=== PATIENT | female | born 1935 | race Caucasian/White ===

== ENCOUNTER 2019-07-25 22:11 | Emergency (ER) | payer MEDICARE, OTHER ==
[~2019-07-25] VITALS: Ht 162.6 cm; Wt 92.0 kg
[2019-07-25] MEDS ORDERED: ipratropium/albuterol 3ml nebule NEB ONE (22:45)
[2019-07-25] MEDS ORDERED: methylPREDNISolone sod succ 125mg/2ml vial IV ONE (22:45)
[2019-07-25 22:59] LABS: ALANINE AMINOTRANSFERASE 62 U/L (12-78); ALBUMIN 3.6 G/DL (3.4-5.0); ALBUMIN/GLOBULIN RATIO 0.9 (1.1-1.5); ALKALINE PHOSPHATASE 54 IU/L (46-116); ANION GAP 9 (8-16); ASPARTATE AMINO TRANSFERASE 66 U/L (10-37); BILIRUBIN,TOTAL 0.4 MG/DL (0.1-1.0); BLOOD UREA NITROGEN 11 MG/DL (7-18); BUN/CREATININE RATIO 13.8 (6.6-38.0); CALCIUM 9.5 MG/DL (8.5-10.1); CHLORIDE 107 MMOL/L (99-107); GLUCOSE 112 MG/DL (70-104); POTASSIUM 3.6 MMOL/L (3.5-5.1); SODIUM 143 MMOL/L (135-145); TOTAL CARBON DIOXIDE 27.3 MMOL/L (24-32); TOTAL PROTEIN 7.7 G/DL (6.4-8.2); eGFR 69 ML/MIN
[2019-07-25 23:02] LABS: BASOPHILS % (AUTO) 0.6 % (0-1); EOSINOPHILS # (AUTO) 0.2 X10'3 (0-0.9); EOSINOPHILS % (AUTO) 4.8 % (0-6); HEMATOCRIT 39.5 % (35.0-45.0); HEMOGLOBIN 13.1 g/dl (12.0-16.0); LYMPHOCYTES # (AUTO) 2.4 X10'3 (1.1-4.8); LYMPHOCYTES % (AUTO) 50.2 % (21-51); MEAN CORPUSCULAR HEMOGLOBIN 29.9 PG (27.0-31.0); MEAN CORPUSCULAR HGB CONC 33.1 g/dL (33.0-36.5); MEAN CORPUSCULAR VOLUME 90.3 FL (78-98); MEAN PLATELET VOLUME 12.3 FL (7.4-10.4); MONOCYTES # (AUTO) 0.6 X10'3 (0-0.9); MONOCYTES % (AUTO) 13.1 % (2-12); NEUTROPHILS # (AUTO) 1.5 X10'3 (1.8-7.7); NEUTROPHILS % (AUTO) 31.3 % (42-75); PLATELET COUNT 82 X10'3 (140-440); RED BLOOD COUNT 4.37 X10'6 (4.20-5.60); RED CELL DISTRIBUTION WIDTH 12.8 % (11.5-14.5); WHITE BLOOD COUNT 4.7 X10'3 (4.5-11.0)
[2019-07-25] MEDS ORDERED: furosemide 10 MG/1 ML 10ml inj IV ONE (23:20)
[2019-07-25 23:21] LABS: LARGE PLATELETS MODERATE; PLATELET ESTIMATE DECREASED
[2019-07-25] MEDS ORDERED: potassium Cl 20 mEq SR tablet PO STA (23:54)
[2019-07-26] MEDS ORDERED: PRED20TA PO (00:05)
[2019-07-26] MEDS ORDERED: ALBU6.7H9 INH (00:06)
[2019-07-26 00:20] VITALS: BP 136/67
== END 2019-07-26 00:22 | disposition home or self-care (01) ==
LOC: ER 22:12
DX: J44.1 Chronic obstructive pulmonary disease with (acute) exacerbation (principal); R21 Rash and other nonspecific skin eruption; R00.0 Tachycardia, unspecified; R60.0 Localized edema; I10 Essential (primary) hypertension; Z79.899 Other long term (current) drug therapy
CPT/HCPCS: 36415; 71045; 80053; 83880; 84484; 85025; 93005; 94640; 94760; 96374; 96375; 99284; J1940; J2930

== ENCOUNTER 2022-02-05 14:21 | Outpatient (CLI) | payer MEDICARE, OTHER ==
[~2022-02-05 14:21] MED LIST: ALBU6.7H9 INH
[2022-02-05 14:50] LABS: TOTAL HEMOGLOBIN 14.2 G/dl (12.0-16.0)
== END 2022-02-05 23:59 | disposition home or self-care (01) ==
LOC: RT 14:21
PROVIDERS: ATTEND Family Medicine
DX: R94.2 Abnormal results of pulmonary function studies (principal); J44.9 Chronic obstructive pulmonary disease, unspecified; I38 Endocarditis, valve unspecified; J30.2 Other seasonal allergic rhinitis
CPT/HCPCS: 71046; 85018; 94010; 94727; 94729